=== PATIENT | male | born 1955 | race Caucasian/White ===

== ENCOUNTER 2018-05-15 22:44 | Inpatient (IN) | payer BC ==
[~2018-05-15] VITALS: Ht 177.8 cm; Wt 96.0 kg
[2018-05-15 22:50] VITALS: BP 146/70; PULSE 93; RESP 18; TEMP 98.2; O2SAT 94
--- NOTE | 2018-05-15 23:03 | PD ---
HPI Chief Complaint: Respiratory Symptoms Time Seen by Provider: 23:00 Travel History International Travel<30 days: No Contact w/Intl Traveler<30days: No Traveled to known affect area: No History of Present Illness HPI Patient comes in complaining of shortness of breath associated with swelling to his legs over the past couple of days. Patient also has started to complain of chest pain, 5 out of 10 in intensity nonradiating. The patient has been out of his Lasix for several days, he is visiting from [place] and has no local physician or clinic. States allergy to penicillin Past medical history significant for CABG 2 in January of this year, hypertension , hypercholesterolemia, appendectomy, CHF, diabetes. PFSH Past Medical History Hx Anticoagulant Therapy: Yes (Plavix) Cardiovascular Problems: Yes (CABG x2 02/10, HTN) High Cholesterol: Yes Chest Pain: Yes Congestive Heart Failure: Yes Coronary Artery Disease: Yes Diabetes: Yes (Metformin) Patient Takes Glucophage: Yes Hypertension: Yes Respiratory: Yes (CHF) Triglycerides - High: Yes Past Surgical History Appendectomy: Yes Coronary Artery Bypass Graft: Yes (x2) Coronary Stent: Yes Social History Alcohol Use: No (rarely) Tobacco Use: No (quit 30years ago) Substance Use: No Allergies-Medications (Allergen,Severity, Reaction): Coded Allergies: Penicillins (Verified Allergy, Severe, 05/15/18) Review of Systems General / Constitutional: No: Fever Eyes: No: Visual changes HENT: No: Headaches Cardiovascular: Positive: Edema Respiratory: Positive: Shortness of Breath Gastrointestinal: No: Abdominal Pain Genitourinary: No: Dysuria Musculoskeletal: No: Pain Skin: No Rash Neurologic: No: Weakness Psychiatric: No: Depression Endocrine: No: Polydipsia Hematologic/Lymphatic: No: Easy Bruising Physical Exam Narrative GENERAL: SKIN: Warm and dry. HEAD: Atraumatic. Normocephalic. EYES: Pupils equal and round. No scleral icterus. No injection or drainage. ENT: No nasal bleeding or discharge. Mucous membranes pink and moist. NECK: Trachea midline. No JVD. CARDIOVASCULAR: Regular rate and rhythm. RESPIRATORY: No accessory muscle use. Bibasilar crackles present, bilateral volume adequate GASTROINTESTINAL: Abdomen soft, non-tender, nondistended. Hepatic and splenic margins not palpable. MUSCULOSKELETAL: Extremities without clubbing, cyanosis, 2 + PITTING BLE edema. No obvious deformities. NEUROLOGICAL: Awake and alert. No obvious cranial nerve deficits. Motor grossly within normal limits. Five out of 5 muscle strength in the arms and legs. Normal speech. PSYCHIATRIC: Appropriate mood and affect; insight and judgment normal. Data Data Last Documented VS Vital Signs Date Time Temp Pulse Resp B/P (MAP) Pulse Ox O2 Delivery O2 Flow Rate FiO2 05/15/18 23:05 88 20 174/83 (113) 97 Nasal Cannula 2.00 05/15/18 22:50 98.2 Orders Orders Electrocardiogram (05/15/18 23:04) B-Type Natriuretic Peptide (05/15/18 23:04) Ckmb (Isoenzyme) Profile (05/15/18 23:04) Complete Blood Count With Diff (05/15/18:) Comprehensive Metabolic Panel (05/15/18:) Prothrombin Time / Inr (Pt) (05/15/18:04) Act Partial Throm Time (Ptt) (05/15/18 23:04) Troponin I (05/15/18:04) Lipase (05/15/18 23:04) Chest, Single Ap (05/15/18 23:04) Ecg Monitoring (05/15/18 23:04) Bilateral Bp Monitoring (05/15/18:04) Iv Access Insert/Monitor (05/15/18:) Oximetry (05/15/18:04) Aspirin Chew (Aspirin Chew) (05/15/18 23:15) Nitroglycerin 2% Oint (Nitroglycerin 2% (05/15/18 23:15) Sodium Chloride 0.9% Flush (Ns Flush) (05/15/18 23:15) Furosemide Inj (Lasix Inj) (05/15/18 23:15) CKMB (05/15/18 23:00) CKMB% (05/15/18 23:00) Labs Laboratory Tests Test 05/15/18 23:00 White Blood Count 7.4 TH/MM3 Red Blood Count 4.11 MIL/MM3 Hemoglobin 11.4 GM/DL Hematocrit 34.1 % Mean Corpuscular Volume 82.9 FL Mean Corpuscular Hemoglobin 27.7 PG Mean Corpuscular Hemoglobin Concent 33.4 % Red Cell Distribution Width 15.4 % Platelet Count 198 TH/MM3 Mean Platelet Volume 9.6 FL Neutrophils (%) (Auto) 67.5 % Lymphocytes (%) (Auto) 22.3 % Monocytes (%) (Auto) 6.5 % Eosinophils (%) (Auto) 3.4 % Basophils (%) (Auto) 0.3 % Neutrophils # (Auto) 5.0 TH/MM3 Lymphocytes # (Auto) 1.7 TH/MM3 Monocytes # (Auto) 0.5 TH/MM3 Eosinophils # (Auto) 0.3 TH/MM3 Basophils # (Auto) 0.0 TH/MM3 CBC Comment DIFF FINAL Differential Comment Prothrombin Time 10.4 SEC Prothromb Time International Ratio 1.0 RATIO Activated Partial Thromboplast Time 24.7 SEC Blood Urea Nitrogen 17 MG/DL Creatinine 0.85 MG/DL Random Glucose 194 MG/DL Total Protein 7.2 GM/DL Albumin 3.5 GM/DL Calcium Level 8.9 MG/DL Alkaline Phosphatase 85 U/L Aspartate Amino Transf (AST/SGOT) 9 U/L Alanine Aminotransferase (ALT/SGPT) 20 U/L Total Bilirubin 1.1 MG/DL Sodium Level 140 MEQ/L Potassium Level 3.4 MEQ/L Chloride Level 104 MEQ/L Carbon Dioxide Level 25.5 MEQ/L Anion Gap 11 MEQ/L Estimat Glomerular Filtration Rate 91 ML/MIN Total Creatine Kinase 124 U/L Creatine Kinase MB 3.2 NG/ML Troponin I 0.10 NG/ML B-Type Natriuretic Peptide 226 PG/ML Lipase 65 U/L [facility] Medical Decision Making Medical Screen Exam Complete: Yes Emergency Medical Condition: Yes Medical Record Reviewed: Yes Interpretation(s) EKG shows sinus rhythm 85 bpm, frequent PACs, inferior T waves on 1 aVL V5 and V6 but without any accompanying ST elevation pattern Differential Diagnosis STEMI versus CHF exacerbation versus pneumonia versus pleural effusion Narrative Course CBC shows no leukocytosis, mild anemia of 11/34, normal platelet count of 198, 000, no left shift Coagulation profile is within normal limits Electrolytes are all within normal limits except for random glucose of 194, normal kidney function normal liver function normal pancreatic function. However the patient's troponin is elevated at 0.1 and the beta natruretic peptide is elevated at 226 Diagnosis Primary Impression: Acute exacerbation of CHF (congestive heart failure) Qualified Codes: I50.9 - Heart failure, unspecified Additional Impression: Non-STEMI Admitting Information Admitting Physician Requests: Admit Gibson Sotelo MD May 15, 2018 23:03
[2018-05-15 23:05] VITALS: BP 174/83; PULSE 88; RESP 20; O2SAT 97
[2018-05-15] MEDS ORDERED: NITROGLYCERIN 2% OINT 1 GM PACKET TOP ONE (23:15)
[2018-05-15] MEDS ORDERED: FUROSEMIDE 100 MG/10 ML VIAL IV PUSH ONE (23:15)
[2018-05-15] MEDS ORDERED: SODIUM CHLORIDE 0.9% FLUSH 10 ML FLUSH IVF PRN (23:15)
[2018-05-15] MEDS ORDERED: ASPIRIN 81 MG CHEW TAB PO ONE (23:15)
[2018-05-15 23:29] LABS: BASOPHIL % 0.3 % (0.0-2.0); EOSINOPHIL # 0.3 TH/MM3 (0-0.4); EOSINOPHIL % 3.4 % (0.0-4.0); HEMATOCRIT 34.1 % (39.0-51.0); HEMOGLOBIN 11.4 GM/DL (13.0-17.0); LYMPH % 22.3 % (9.0-44.0); LYMPHOCYTE # 1.7 TH/MM3 (1.0-4.8); MEAN CELL VOLUME 82.9 FL (80.0-100.0); MEAN CORPUSCULAR HEMOGLOBIN 27.7 PG (27.0-34.0); MEAN CORPUSCULAR HGB CONC 33.4 % (32.0-36.0); MEAN PLATELET VOLUME 9.6 FL (7.0-11.0); MONO % 6.5 % (0.0-8.0); MONOCYTE # 0.5 TH/MM3 (0-0.9); NEUT % 67.5 % (16.0-70.0); PLATELET COUNT 198 TH/MM3 (150-450); RED BLOOD COUNT 4.11 MIL/MM3 (4.50-5.90); RED CELL DISTRIBUTION WIDTH 15.4 % (11.6-17.2); WHITE BLOOD COUNT 7.4 TH/MM3 (4.0-11.0)
--- NOTE | 2018-05-15 23:35 | RADRPT ---
EXAM DATE: 05/15/2018 11:23 PM EDT AGE/SEX: 62 years / Male INDICATIONS: Chest pain and shortness of breath. CLINICAL DATA: This is the patient's initial encounter. Patient reports that signs and symptoms have been present for 3 days and indicates a pain score of 5/10. MEDICAL/SURGICAL HISTORY: Hypertension. Diabetes mellitus type II. CABG. 3 cardiac stents. COMPARISON: No prior exams available for comparison. FINDINGS: There are numerous sternal wires. There is some atelectasis and small consolidation right lung base w ith an elevated left hemidiaphragm. Minimal airspace disease in the left midlung zone. No visible pne umothorax. Heart and mediastinum are unremarkable. CONCLUSION: Minimal airspace disease right lung base of the hemidiaphragm and a small area consolidation left mid lung zone could be areas of pneumonia Electronically signed by: Edin Schmid MD 05/15/2018 11:34 PM EDT
[2018-05-15 23:38] LABS: PROTHROMBIN TIME - PATIENT 10.4 SEC (9.8-11.6)
[2018-05-15 23:54] LABS: ALBUMIN 3.5 GM/DL (3.4-5.0); AST (GOT) 9 U/L (15-37); BICARBONATE 25.5 MEQ/L (21.0-32.0); BLOOD UREA NITROGEN 17 MG/DL (7-18); CALCIUM 8.9 MG/DL (8.5-10.1); CHLORIDE 104 MEQ/L (98-107); CREATININE 0.85 MG/DL (0.60-1.30); GLOMERULAR FILTRATION RATE 91 ML/MIN (>89); GLUCOSE,RANDOM 194 MG/DL (74-106); SODIUM (NA) 140 MEQ/L (136-145)
[2018-05-15 23:55] LABS: ALT (GPT) 20 U/L (12-78)
[2018-05-15 23:59] LABS: ALKALINE PHOSPHATASE 85 U/L (45-117); TOTAL BILIRUBIN ADULT 1.1 MG/DL (0.2-1.0); TOTAL PROTEIN 7.2 GM/DL (6.4-8.2)
[2018-05-16] VITALS (12 sets, daily range): BP systolic 110–164; BP diastolic 59–79; PULSE 70–89; RESP 18–20; TEMP 97.6–98.4; O2SAT 97–99
[2018-05-16] MEDS ORDERED: ENOXAPARIN SODIUM 80 MG/0.8 ML SYRINGE SQ ONE (01:15)
[2018-05-16] MEDS ORDERED: NALOXONE HCL 0.4 MG/ML AMP IV PUSH PRN (02:45)
[2018-05-16] MEDS ORDERED: SODIUM CHLORIDE 0.9% FLUSH 10 ML FLUSH IV FLUSH PRN (02:45)
[2018-05-16] MEDS ORDERED: ACETAMINOPHEN 325 MG TAB PO PRN (02:45)
[2018-05-16] MEDS ORDERED: LEVOFLOXACIN 750 MG PREMIX INJ 150 ML IV SCH (03:00)
[2018-05-16] MEDS ORDERED: DEXTROSE 50% IN WATER 50 ML VIAL(D50) IV PUSH PRN (03:45)
[2018-05-16] MEDS ORDERED: POTASSIUM CHLORIDE 20 MEQ CONTROLLED RELEASE TAB PO ONE (03:45)
[2018-05-16] MEDS ORDERED: GLUCAGON 1 MG/ML VIAL OTHER PRN (03:45)
[2018-05-16] MEDS ORDERED: MORPHINE SULFATE 4 MG/ML INJ IV PUSH PRN (03:45)
--- NOTE | 2018-05-16 03:45 | HHI.HP ---
[facility] Unknown Admission Diagnosis CHF EXACERBATION AND NONSTEMI Diagnoses: Travel History International Travel<30 Days: No Contact w/Intl Traveler <30 Da: No Traveled to Known Affected Are: No History of Present Illness 62-year-old male with a past medical history significant for coronary artery disease, diabetes mellitus, hypertension, hyperlipidemia and CHF presents the emergency department for the evaluation of bilateral chest pain that radiates into his abdomen. The patient reports that he has also been increasingly short of breath. He states his symptoms started 2 days ago. He is currently visiting from [place]. He also has a 2 day history of 2+ pitting edema in the bilateral lower extremities. He denies any nausea/vomiting/diarrhea. No lateralizing signs/symptoms. No fevers/chills. Review of Systems Except as stated in HPI: all other systems reviewed are Neg Past Family Social History Past Medical History coronary artery disease, diabetes mellitus, hypertension, hyperlipidemia and CHF Past Surgical History CABG 2 in January 2018 Appendectomy Allergies: Coded Allergies: Penicillins (Verified Allergy, Severe, 05/15/18) Family History Mother with diabetes and coronary artery disease Social History Occasional alcohol. Negative for tobacco and illicit drugs. Physical Exam Vital Signs Vital Signs Date Time Temp Pulse Resp B/P (MAP) Pulse Ox O2 Delivery O2 Flow Rate FiO2 05/15/18 23:05 88 20 174/83 (113) 97 Nasal Cannula 2.00 05/15/18 22:50 98.2 93 18 146/70 (95) 94 Room Air Physical Exam GENERAL: male lying in bed SKIN: No rashes, ecchymoses or lesions. Cool and dry. HEAD: Atraumatic. Normocephalic. No temporal or scalp tenderness. EYES: Pupils equal round and reactive. Extraocular motions intact. No scleral icterus. No injection or drainage. ENT: Nose without bleeding, purulent drainage or septal hematoma. Throat without erythema, tonsillar hypertrophy or exudate. Uvula midline. Airway patent. NECK: Trachea midline. No JVD or lymphadenopathy. Supple, nontender, no meningeal signs. CARDIOVASCULAR: Regular rate and rhythm without murmurs, gallops, or rubs. RESPIRATORY: Clear to auscultation. Breath sounds equal bilaterally. No wheezes , rales, or rhonchi. GASTROINTESTINAL: Abdomen soft, non-tender, nondistended. No hepato-splenomegaly , or palpable masses. No guarding. MUSCULOSKELETAL: 2+ bilateral lower extremity edema NEUROLOGICAL: Awake and alert. Cranial nerves II through XII intact. Motor and sensory grossly within normal limits. Normal speech. Laboratory Laboratory Tests Test 05/15/18 23:00 White Blood Count 7.4 Red Blood Count 4.11 Hemoglobin 11.4 Hematocrit 34.1 Mean Corpuscular Volume 82.9 Mean Corpuscular Hemoglobin 27.7 Mean Corpuscular Hemoglobin Concent 33.4 Red Cell Distribution Width 15.4 Platelet Count 198 Mean Platelet Volume 9.6 Neutrophils (%) (Auto) 67.5 Lymphocytes (%) (Auto) 22.3 Monocytes (%) (Auto) 6.5 Eosinophils (%) (Auto) 3.4 Basophils (%) (Auto) 0.3 Neutrophils # (Auto) 5.0 Lymphocytes # (Auto) 1.7 Monocytes # (Auto) 0.5 Eosinophils # (Auto) 0.3 Basophils # (Auto) 0.0 CBC Comment DIFF FINAL Differential Comment Prothrombin Time 10.4 Prothromb Time International Ratio 1.0 Activated Partial Thromboplast Time 24.7 Blood Urea Nitrogen 17 Creatinine 0.85 Random Glucose 194 Total Protein 7.2 Albumin 3.5 Calcium Level 8.9 Alkaline Phosphatase 85 Aspartate Amino Transf (AST/SGOT) 9 Alanine Aminotransferase (ALT/SGPT) 20 Total Bilirubin 1.1 Sodium Level 140 Potassium Level 3.4 Chloride Level 104 Carbon Dioxide Level 25.5 Anion Gap 11 Estimat Glomerular Filtration Rate 91 Total Creatine Kinase 124 Creatine Kinase MB 3.2 Troponin I 0.10 B-Type Natriuretic Peptide 226 Lipase 65 Result Diagram: 05/15/18229905/15/182299 Caprini VTE Risk Assessment Caprini VTE Risk Assessment: Mod/High Risk (score >= 2) Caprini Risk Assessment Model Point Value = 1 Point Value = 2 Point Value = 3 Point Value = 5 Age 41-60 Minor surgery BMI > 25 kg/m2 Swollen legs Varicose veins or History of unexplained or recurrent spontaneous Oral contraceptives or hormone replacement Sepsis (< 1 month) Serious lung disease, including pneumonia (< 1 month) Abnormal pulmonary function Acute myocardial infarction Congestive heart failure (< 1 month) History of inflammatory bowel disease Medical patient at bed rest Age 61-74 Arthroscopic surgery Major open surgery (> 45 min) Laparoscopic surgery (> 45 min) Malignancy Confined to bed (> 72 hours) Immobilizing plaster cast Central venous access Age >= 75 History of VTE Family history of VTE Factor V Leiden Prothrombin [id number] Lupus anticoagulant Anticardiolipin antibodies Elevated serum homocysteine Heparin-induced thrombocytopenia Other congenital or acquired thrombophilia Stroke (< 1 month) Elective arthroplasty Hip, pelvis, or leg fracture Acute spinal cord injury (< 1 month) Prophylaxis Regimen Total Risk Factor Score Risk Level Prophylaxis Regimen 0-1 Low Early ambulation 2 Moderate Order ONE of the following: *Sequential Compression Device (SCD) *Heparin 5000 units SQ BID 3-4 Higher Order ONE of the following medications: *Heparin 5000 units SQ TID *Enoxaparin/Lovenox 40 mg SQ daily (WT < 150 kg, CrCl > 30 mL/min) *Enoxaparin/Lovenox 30 mg SQ daily (WT < 150 kg, CrCl > 10-29 mL/min) *Enoxaparin/Lovenox 30 mg SQ BID (WT < 150 kg, CrCl > 30 mL/min) AND/OR *Sequential Compression Device (SCD) 5 or more Highest Order ONE of the following medications: *Heparin 5000 units SQ TID (Preferred with Epidurals) *Enoxaparin/Lovenox 40 mg SQ daily (WT < 150 kg, CrCl > 30 mL/min) *Enoxaparin/Lovenox 30 mg SQ daily (WT < 150 kg, CrCl > 10-29 mL/min) *Enoxaparin/Lovenox 30 mg SQ BID (WT < 150 kg, CrCl > 30 mL/min) AND *Sequential Compression Device (SCD) Assessment and Plan Assessment and Plan Assessment/plan: 1. Elevated troponin ? NSTEMI EKG without signs of ischemia, personally reviewed Initial troponin 0.10 Serial troponins/EKGs Aspirin Therapeutic Lovenox Cardiology consulted, appreciate recommendations 2. CHF exacerbation Continue home medications once medications are reconciled IV Lasix 3. Pneumonia Chest x-ray significant for small area of consolidation in the left midlung, personally reviewed Levaquin 4. Diabetes mellitus Sliding-scale insulin Monitor blood glucose 5. Hypertension/hyperlipidemia/CAD Continue home medications once reconciled FEN N.p.o. Electrolytes: Status post p.o. potassium, monitor BMP Lovenox Physician Certification 2 Midnight Certification Type: Admission for Inpatient Services Order for Inpatient Services The services are ordered in accordance with Medicare regulations or non- Medicare payer requirements, as applicable. In the case of services not specified as inpatient-only, they are appropriately provided as inpatient services in accordance with the 2-midnight benchmark. Estimated LOS (days): 2 2 days is the estimated time the patient will need to remain in the hospital, assuming treatment plan goals are met and no additional complications. Post-Hospital Plan: Not yet determined Shauna Carvajal MD May 16, 2018 03:45
[2018-05-16] MEDS ORDERED: DOXA1TAB34 PO (04:02)
[2018-05-16] MEDS ORDERED: VITA10002 PO (04:02)
[2018-05-16] MEDS ORDERED: ATOR80TA45 PO (04:02)
[2018-05-16] MEDS ORDERED: VITA1000 PO (04:02)
[2018-05-16] MEDS ORDERED: METF1000 PO (04:02)
[2018-05-16] MEDS ORDERED: LOSA25TA PO (04:02)
[2018-05-16] MEDS ORDERED: LANTUS U SQ (04:02)
[2018-05-16] MEDS ORDERED: METO25TA3 PO (04:02)
[2018-05-16] MEDS ORDERED: CLOP75TA PO (04:02)
[2018-05-16] MEDS ORDERED: ASPI81CH6 CHEW (04:02)
[2018-05-16] MEDS ORDERED: NOVOLOGP2 SQ (04:02)
[2018-05-16] MEDS: INSULIN ASPART SUPPLEMENTAL SCALE SQ SCH ×2 (08:00→12:00)
--- NOTE | 2018-05-16 08:26 | HHI.PR ---
Subjective Remarks Follow-up CAD, elevated troponin, CHF. The patient reports tightness in his chest, which is the same as it has been since he had CABG 3 months ago. Mild shortness of breath this morning. No other complaints at this time. He states that he has been compliant with all of his prescribed medications. Objective Vitals Vital Signs Date Time Temp Pulse Resp B/P (MAP) Pulse Ox O2 Delivery O2 Flow Rate FiO2 05/16/18 07:00 97.8 86 20 160/73 (102) 97 05/16/18 07:00 83 05/16/18 06:07 79 05/16/18 05:09 160/77 (104) 05/16/18 05:07 81 05/16/18 04:51 98.4 89 18 164/79 (107) 97 05/16/18 03:50 78 20 153/74 (100) 99 Nasal Cannula 2.00 05/15/18 23:05 88 20 174/83 (113) 97 Nasal Cannula 2.00 05/15/18 22:50 98.2 93 18 146/70 (95) 94 Room Air I/O 05/15/18 05/15/18 05/15/18 05/16/18 05/16/18 05/16/18 07:00 15:00 23:00 07:00 15:00 23:00 Intake Total 150 ml Output Total 1875 ml Balance -1725 ml Intake IV Total 150 ml Output Urine Total 1875 ml # Voids 1 Result Diagram: 05/15/18 2300 05/15/18 2300 Imaging Last Impressions Chest X-Ray 05/15/18 2304 Signed Impressions: CONCLUSION: Minimal airspace disease right lung base of the hemidiaphragm and a small area consolidation left midlung zone could be areas of pneumonia Objective Remarks General: No acute distress. Heart: Regular rate and rhythm. No murmur. Lungs: Clear to auscultation bilaterally. No wheezes, rales, or rhonchi. Breathing is nonlabored. Abdomen: Soft, nontender, nondistended. Extremities: 2+ bilateral lower extremity edema. Psych: Alert and oriented. Neuro: Normal speech. No focal deficits noted. Procedures None Urinary Catheter: No Vascular Central Line Catheter: No A/P Assessment and Plan 1. Elevated troponin: Possible non-ST elevation OK. Follow serial cardiac enzymes and EKGs. Continue aspirin, Lovenox. Cardiology consultation is pending. 2. Acute exacerbation of chronic systolic congestive heart failure: Continue diuresis with Lasix. BNP elevated. 3. Pneumonia: Small area of consolidation in the left midlung seen on chest x- ray. Continue Levaquin. 4. Diabetes mellitus: Monitor Accu-Cheks and cover with sliding scale insulin. Hold metformin. Resume basal insulin when diet is resumed (patient takes Lantus 60 units daily). 5. Coronary artery disease, hypertension, hyperlipidemia: Continue aspirin, Plavix, beta-leonel, losartan. 6. Mild hypokalemia: Potassium supplemented in the ER. Monitor labs. 7. DVT prophylaxis: Lovenox. Karl Johnson MD May 16, 2018 08:26
[2018-05-16] MEDS ORDERED: SODIUM CHLORIDE 0.9% FLUSH 10 ML FLUSH IV FLUSH SCH (09:00)
[2018-05-16] MEDS ORDERED: CLOPIDOGREL 75 MG TAB PO SCH (09:00)
[2018-05-16] MEDS ORDERED: LOSARTAN 25 MG TAB PO SCH (09:00)
[2018-05-16] MEDS ORDERED: DOXAZOSIN MESYLATE 4 MG TAB PO SCH (09:00)
[2018-05-16] MEDS ORDERED: METOPROLOL TARTRATE 25 MG TAB PO SCH (09:00)
[2018-05-16] MEDS ORDERED: ASPIRIN 81 MG CHEW TAB CHEW SCH (09:00)
[2018-05-16] MEDS ORDERED: INSULIN DETEMIR 100 UNITS/ML VIAL SQ SCH (09:00)
[2018-05-16 10:00] LABS: TROPONIN I 0.11 NG/ML (0.02-0.05)
[2018-05-16 12:41] LABS: TROPONIN I 0.12 NG/ML (0.02-0.05)
[2018-05-16] MEDS ORDERED: ENOXAPARIN SODIUM 100 MG/ML SYRINGE SQ SCH (13:00)
--- NOTE | 2018-05-16 13:44 | MB ---
cc: Annita Gomes MD DATE: 05/16/2018 HISTORY OF PRESENT ILLNESS: This is a 62-year-old white male with recent myocardial infarction and 2-vessel coronary bypass in January 2018 He drove from [place] with his and over the last several days developed shortness of breath and lower extremity edema. He has not had any angina. He presented to the emergency room. He gives a history of chest pain, but currently he denies having any chest pain. He is feeling better with diuresis. PAST MEDICAL HISTORY: Positive for coronary artery disease, coronary artery bypass as above, diabetes mellitus, hypertension, dyslipidemia, congestive heart failure, cardiomyopathy, history of appendectomy. MEDICATIONS: Include: 1. Atorvastatin. 2. Lovenox. 3. Aspirin. 4. Plavix. 5. Cardura. 6. Cozaar. 7. Metoprolol. 8. Insulin. ALLERGIES: PENICILLIN. SOCIAL HISTORY: The patient does not smoke. He drinks alcohol occasionally. He is , accompanied by his . FAMILY HISTORY: Positive for heart disease in his mother. REVIEW OF SYSTEMS: Otherwise negative. PHYSICAL EXAMINATION: VITAL SIGNS: Blood pressure 128/69, pulse 75 and regular. HEENT: Negative. NECK: 2+ carotid upstrokes. No bruits. LUNGS: Clear. HEART: Regular with no murmur or gallop. ABDOMEN: Soft. EXTREMITIES: With 1-2+ edema. 1+ distal pulses. NEUROLOGIC: Grossly nonfocal. DIAGNOSTIC DATA: EKG was reviewed and it showed normal sinus rhythm, PACs, left axis anteroseptal Q-waves, diffuse ST-T changes. LABORATORY DATA: Hemoglobin 11.4. Potassium 3.4, creatinine 0.85. Troponin 0.10, 0.11 and 0.12. BNP 226. DIAGNOSES: 1. Acute congestive heart failure exacerbation. 2. Mildly abnormal troponin. 3. Possible pneumonia. 4. Diabetes mellitus. 5. Hypertension. 6. Dyslipidemia. 7. Coronary artery disease with history of recent coronary bypass. DISPOSITION: Mr. Eckert's symptoms are improving with IV diuresis. I recommend to monitor his renal function and electrolytes. Troponins are slightly elevated, but not trending. The patient is adamant about leaving early this afternoon against medical advice. I explained to him and his the potential severe danger of him leaving before his inpatient therapy is completed. Recommend to continue medications, including beta leonel, Losartan, Plavix, aspirin and atorvastatin. I will follow him for cardiology during the hospitalization. He will follow up with his physicians in [place] following discharge. MD SUZANNE Sykes/TINA , 01:17 PM , 01:42 PM
--- NOTE | 2018-05-16 18:50 | EKG ---
Date Performed: 05/15/2018 Time Performed: 23:03:36 PTAGE: 62 years EKG: Sinus rhythm WITH FREQUENT SUPRAVENTRICULAR PREMATURE COMPLEXES MARKED LEFT AXIS DEVIATION SEPTAL MYOCARDIAL INFA RCTION MODERATE T-WAVE ABNORMALITY, CONSIDER LATERAL ISCHEMIA ABNORMAL ECG NO PREVIOUS TRACING DOCTOR: Christin Walsh Interpretating Date/Time 05/16/2018 18:47:56
--- NOTE | 2018-05-16 18:50 | EKG ---
Date Performed: 05/16/2018 Time Performed: 08:21:38 PTAGE: 62 years EKG: Sinus arrhythmia Left anterior fascicular block Cannot rule out septal infarct - age undete rmined Possible left ventricular hypertrophy Inferior/lateral ST-T changes may be due to hypertrophy and/or ischemia Abnormal ECG Since the PREVIOUS TRACING , no significant change noted PREVIOUS TRACIN05/15/2018 23.03.36 DOCTOR: Christin Walsh Interpretating Date/Time 05/16/2018 18:48:28
[2018-05-16] MEDS ORDERED: ATORVASTATIN 80 MG TAB PO SCH (21:00)
[2018-05-17] MEDS ORDERED: LANTUS2P SQ (11:02)
== END 2018-05-16 14:15 | disposition left against medical advice (07) | DRG 291 ==
LOC: NEPC 22:44 → NEDA 05-16 01:55 → OBSVTOIN 05-16 02:39 → HCPC 05-16 04:44
PROVIDERS: ADMIT Family Medicine; ATTEND Family Medicine
DX: I11.0 Hypertensive heart disease with heart failure (principal); J18.9 Pneumonia, unspecified organism; Z95.1 Presence of aortocoronary bypass graft; E87.6 Hypokalemia; E11.9 Type 2 diabetes mellitus without complications; I50.23 Acute on chronic systolic (congestive) heart failure; R79.89 Other specified abnormal findings of blood chemistry; I25.10 Atherosclerotic heart disease of native coronary artery without angina pectoris; E78.5 Hyperlipidemia, unspecified; I25.2 Old myocardial infarction; Z79.82 Long term (current) use of aspirin; Z79.4 Long term (current) use of insulin; Z79.899 Other long term (current) drug therapy
CPT/HCPCS: 71045; 80053; 82550; 82552; 82948; 83690; 83880; 84484; 85025; 85610; 85730; 93005; 96372; 96374; J1650; J1940; J1956